=== PATIENT | female | born 1965 | race Caucasian/White ===

== ENCOUNTER → 2018-09-04 | Outpatient (CLI) | payer MEDICARE ==
--- NOTE | 2018-09-04 11:02 | MM ---
Reason for exam: additional evaluation requested from prior study. Last mammogram was performed 3 years and 11 months ago. History: Patient has history of other cancer at age 45. Physical Findings: Nurse did not find any significant physical abnormalities on exam. MG 3D Diag Mammo W/Cad MARÍA Bilateral CC and MLO view(s) were taken. Spot compression MLO and LM view(s) were taken of the right breast. Prior study comparison: September 30, 2014, left breast MG work up mamm w CAD LT. September 21, 2014, bilateral MG screening mammo w CAD. The breast tissue is heterogeneously dense. This may lower the sensitivity of mammography. Finding: There is a high density, spiculated irregular mass in the posterior position of the right breast on MLO view, disperses on compression, not on tomosynthesis. These results were verbally communicated with the patient and result sheet given to the patient on 09/04/18. ASSESSMENT: Benign, BI-RAD 2 RECOMMENDATION: Routine screening mammogram of both breasts in 1 year.
== END | disposition home or self-care (01) ==
LOC: RADMAMWWP 09:26
PROVIDERS: ATTEND Family Medicine
DX: R92.8 Other abnormal and inconclusive findings on diagnostic imaging of breast (principal)
CPT/HCPCS: 77066; G0279; 77062

== ENCOUNTER → 2019-06-29 | Outpatient (CLI) | payer MEDICARE ==
--- NOTE | 2019-06-30 18:39 | US ---
EXAMINATION TYPE: US thyroid st tissue head/neck DATE OF EXAM: 06/29/2019 COMPARISON: US CLINICAL HISTORY: E03.9 Hypothyroidism; Left thyroidectomy GLAND SIZE: Right Lobe: 3.4 x 1.1 x 1.3 cm Overall Parenchyma: heterogenous Left Lobe: surgically absent cm Isthmus Thickness: surgically absent NODULES RIGHT: # of nodules measured on right: 3 1. 0.4 X 0.4 x 0.4 cm hyperechoic solid nodule at the upper pole with well-defined margins. This n odule is wide as is tall and shows no intranodular vascularity. Prior size: 0.4 x 0.3 x 0.3 cm 2. 0.6 X 0.4 x 0.4 cm hyperechoic solid nodule at the upper medial pole with well-defined margins. This nodule is wider as is tall and shows no intranodular vascularity. Prior size: 0.5 x 0.3 x 0.5 cm 3. 0.4 X 0.3 x 0.2 cm hyperechoic solid nodule at the lower pole with well-defined margins. This no dule is wider than tall and shows no intranodular vascularity. Prior size: not seen Bilateral neck scanned: superior left neck lymph node = 2.0 x 0.7 x 0.2cm and at inferior neck = 1.1 x 0.6 x 0.3cm. IMPRESSION: 1. Subcentimeter nodules right lobe thyroid. 2. Lymph nodes within the left neck
== END | disposition home or self-care (01) ==
LOC: RADUSWWP 16:17
PROVIDERS: ATTEND Family Medicine
DX: E04.1 Nontoxic single thyroid nodule (principal); E03.9 Hypothyroidism, unspecified; Z91.041 Radiographic dye allergy status
CPT/HCPCS: 76536